=== PATIENT | male | born 1975 | race Caucasian/White ===

== ENCOUNTER 2019-11-19 10:36 | Emergency (ER) | payer OTHER ==
[~2019-11-19] VITALS: Ht 172.7 cm; Wt 108.4 kg
[2019-11-19 10:50] VITALS: BP 146/100; Ht 172.7 cm; Wt 108.4 kg
== END 2019-11-19 12:18 | disposition home or self-care (01) ==
LOC: ED 10:36
DX: S81.011A Laceration without foreign body, right knee, initial encounter (principal); I10 Essential (primary) hypertension; E11.9 Type 2 diabetes mellitus without complications; W45.8XXA Other foreign body or object entering through skin, initial encounter; Y93.89 Activity, other specified; Y92.89 Other specified places as the place of occurrence of the external cause; Y99.8 Other external cause status
CPT/HCPCS: J2001